=== PATIENT | male | born 1980 | race Caucasian/White ===

== ENCOUNTER → 2020-11-29 | Outpatient (CLI) | payer OTHER ==
[2020-11-29 16:34] LABS: INR 1.05; PROTHROMBIN TIME 13.9 SECONDS (12.5-14.3)
[2020-11-29 16:35] LABS: PARTIAL THROMBOPLASTIN TIME 32.9 SECONDS (24.2-38.5)
[2020-11-29 17:11] LABS: ALBUMIN 4.1 GM/DL (3.2-5.2); ALT/SGPT 139 U/L (12-78); BILIRUBIN,DIRECT < 0.1 MG/DL (0.0-0.2); BILIRUBIN,TOTAL 0.6 MG/DL (0.2-1.0); FERRITIN 316 NG/ML (26-388); HEPATITIS B SURFACE ANTIBODY NEGATIVE (POSITIVE); IRON (FE) 82 UG/DL (65-175); TOTAL IRON BINDING CAPACITY 341 UG/DL (250-450); TOTAL PROTEIN 7.4 GM/DL (6.4-8.2)
[2020-11-29 17:17] LABS: HEPATITIS B SURFACE ANTIGEN NEGATIVE (NEGATIVE)
[2020-11-29 17:44] LABS: HEPATITIS C VIRUS ABY INDEX < 0.0 INDEX (<0.8)
[2020-11-29 17:46] LABS: HEPATITIS A ANTIBODY IGM NEGATIVE (NEGATIVE)
[2020-11-30 09:06] LABS: ALBUMIN 4.66 GM/DL (3.29-5.55); ALPHA-1-GLOBULIN % 3.5 % (2.9-4.9); ALPHA-1-GLOBULINS 0.26 GM/DL (0.17-0.41); ALPHA-2-GLOBULINS 0.72 GM/DL (0.42-0.99); ALPHA-2-GLOBULINS % 9.7 % (7.1-11.8)
[2020-11-30 09:07] LABS: BETA-1-GLOBULINS 0.42 GM/DL (0.28-0.60); BETA-1-GLOBULINS % 5.7 % (4.7-7.2); BETA-2-GLOBULINS 0.35 GM/DL (0.19-0.55); BETA-2-GLOBULINS % 4.7 % (3.2-6.5); GAMMA GLOBULIN % 13.4 % (11.1-18.8); GAMMA GLOBULINS 0.99 GM/DL (0.65-1.58)
[2020-12-01 14:08] LABS: ALPHA 1 ANTITRYPSIN 131 mg/dL (95-164); ANTI-MITOCHONDRIAL ANTIBODY <20.0 Units (0.0-20.0); ANTI-SMOOTH MUSCLE ANTIBODY 3 Units (0-19); ANTINUCLEAR ANTIBODIES DIRECT Negative (Negative); CERULOPLASMIN 18.3 mg/dL (16.0-31.0); HEPATITIS A IgG TOTAL Negative (Negative); LIVER-KIDNEY MICROSOMAL ABY <20.1 Units (0.0-20.0); TISSUE TRANSGLUTAMINASE IgA <2 U/mL (0-3); TISSUE TRANSGLUTAMINASE IgG 4 U/mL (0-5)
== END ==
LOC: M WUC 14:00
PROVIDERS: ATTEND Physician Assistant
DX: R94.5 Abnormal results of liver function studies (principal)